=== PATIENT | female | born 1955 | race Caucasian/White ===

== ENCOUNTER 2020-04-20 09:53 | Outpatient (REF) | payer BC, SELFPAY ==
[2020-04-20 13:45] LABS: HCT 41.1 % (36.0-46.0); HGB 13.6 g/dL (11.2-15.7); MCH 29.8 pg (27.0-33.0); MCHC 33.1 % (32.0-36.0); MCV 89.9 fL (80-95); MPV 9.4 fL (8.0-11.0); Platelet Count 289 10^3/uL (130-400); RBC 4.57 10^6/uL (3.93-5.22); RDW 12.2 % (11.7-14.6); RDW-SD 40.4 fL; WBC 4.19 10^3/uL (4.4-10.8)
[2020-04-20 13:57] LABS: ALT 27 U/L (14-59); AST 24 U/L (15-37); Albumin 3.9 g/dL (3.4-5.0); Alkaline Phosphatase 49 U/L (46-116); Anion Gap 8.7 mmol/L (3-11); BUN 21 mg/dL (7-18); Bilirubin, Total 0.3 mg/dL (0.2-1.0); CO2 27.3 mmol/L (21.0-32.0); CREATININE 0.8 mg/dL (0.55-1.02); Calcium 9.2 mg/dL (8.5-10.1); Calculated LDL 101 mg/dL (<100); Chloride 104 mmol/L (98-107); Cholesterol 180 mg/dL (<200); Glucose 97 mg/dL (74-106); HDL Cholesterol 71 mg/dL (40-60); Potassium 5.1 mmol/L (3.5-5.1); Sodium 140 mmol/L (136-145); TSH 5.62 uIU/mL (0.36-3.74); Total Protein 7.2 g/dL (6.4-8.2); Triglyceride 40 mg/dL (<150)
[2020-04-20 14:17] LABS: FREE T4 1.05 ng/dL (0.76-1.46)
[2020-04-20 21:40] LABS: T3,Free 3.4 pg/mL (2.8-5.3)
== END 2020-04-20 09:54 | disposition home or self-care (01) ==
LOC: NCHCN 09:53
PROVIDERS: Visit Provider Family Medicine
DX: E03.9 Hypothyroidism, unspecified (principal); I10 Essential (primary) hypertension; I73.00 Raynaud's syndrome without gangrene
CPT/HCPCS: 80053; 80061; 85027; 84439; 84443; 84481

== ENCOUNTER 2021-01-06 09:37 | Outpatient (REF) | payer BC, SELFPAY ==
[2021-01-07 09:07] LABS: Anion Gap 5.8 mmol/L (3-11); BUN 14 mg/dL (7-18); CO2 30.2 mmol/L (21.0-32.0); CREATININE 0.9 mg/dL (0.55-1.02); Calcium 9.4 mg/dL (8.5-10.1); Chloride 103 mmol/L (98-107); Glucose 91 mg/dL (74-106); Potassium 5.7 mmol/L (3.5-5.1); Sodium 139 mmol/L (136-145); TSH (W/Ref FT4) 4.17 uIU/mL (0.36-3.74)
[2021-01-07 09:56] LABS: FREE T4 1.03 ng/dL (0.76-1.46)
== END 2021-01-06 09:38 | disposition home or self-care (01) ==
LOC: NCHCN 09:37
PROVIDERS: Visit Provider Family Medicine
DX: E03.9 Hypothyroidism, unspecified (principal)
CPT/HCPCS: 80048; 84439; 84443

== ENCOUNTER 2021-01-31 11:12 | Outpatient (REF) | payer BC, SELFPAY ==
[2021-01-31 15:52] LABS: Potassium 4.7 mmol/L (3.5-5.1)
== END 2021-01-31 11:13 | disposition home or self-care (01) ==
LOC: NCHCN 11:12
PROVIDERS: Visit Provider Family Medicine
DX: I10 Essential (primary) hypertension (principal)
CPT/HCPCS: 84132

== ENCOUNTER 2021-09-09 08:01 | Day surgery (SDC) | payer BC, SELFPAY ==
--- NOTE | 2021-09-08 18:40 | W.COLOREPORT ---
Colonoscopy Report Date of procedure: 09/09/21 Pre-op diagnosis general: +cologuard Surgeon: Maggie Asencio Anesthesia Type: General:No Airway Estimated blood loss (mL): 1 Pathology: other Complications: None Disposition: same day Prep: Miralax/Dulcolax Retraction Time: 11 Procedure Description: After informed consent was obtained the patient was taken to the procedure room and placed in a left decubitous position. Monitors were applied and a time out was done. The patients name, date of , procedure, allergies to medications and metal in their body was reviewed. The patient was then sedated. Once sedated and comfortable a rectal exam was done. External exam was normal. Internal exam revealed a normal sphincter tone and no palpable masses. The scope was then introduced and retrofelexed. No internal hemorrhoids were identified. The scope was then advanced to the cecum w/ouy difficulty. The TI and appendiceal orifice were identified. The prep was BB PS 2 for a total of 6 in all segments in all segments,. The scope was then slowly retracted over 11 minutes back into the rectum. she had no diverticula or AVMs. The mucosa is pink and healthy with a normal vascular pattern. She had a small 5 mm flat polyp at 20 cm. This is removed with a cold forceps. She had a 1 cm pedunculated polyp in high the rectum. This is removed with a cold snare. The polyp is retrieved and no bleeding is noted. The scope was removed and the patient was woken up and taken back to Same day surgery in stable condition. The patient tolerated the procedure well and there were no immediate complications. Follow up: The patient should follow up in proabably 3-5 years unless they develop changes in bowel habits or other new gastrointestinal complaints.
--- NOTE | 2021-09-08 18:41 | PDOC.DSDIS_ITS ---
Discharge Plan Disposition Patient Disposition: HOME Condition: Good Discharge Details Reason For Visit: colon scope Attending Provider: Maggie Asencio Primary Care Provider: Emi Bailon Home Meds and New Rx's Prescriptions: Continued hydrochlorothiazide 25 mg tablet 25 mg PO DAILY Discontinued bisacodyl [Dulcolax (bisacodyl)] 5 mg tablet,delayed release (DR/EC) 5 mg PO ONCE Qty: 4 0RF Rx Instructions: Take according to provider's instructions for colonoscopy prep. polyethylene glycol 3350 17 gram/dose powder 17 g PO ONCE Qty: 238 0RF Rx Instructions: To be taken as directed by prescriber's office for colonoscopy prep. Discharge Instructions Additional Instructions: DSU Colonoscopy Post- Op Instructions Instructions for Everyone who is given Anesthesia: For your safety, please do the following for the next twenty-four (24) hours: *Do Not operate a motor vehicle (car, truck, motorcycle, etc.) *Do Not drink alcoholic beverages or use any recreational drugs for the first 24 hours or while taking pain medications. The medications in your body may have a reaction that can be dangerous. *Do Not make any important decisions or sign any important papers. Findings: polyps x2 Follow up: My office will send a letter in 2 to 3 weeks time, detailing as to what type of polyp it is and when we want you to repeat your colonoscopy, probably in 5 years time. 1. No lifting over 20 pounds or strenuous activity for the first 24 hours after your procedure. After 24 hours there are no restrictions on your activity but y ou may feel fatigued for a few days. 2. After you arrive home you may have a light meal and return to your normal diet as you can tolerate it without feeling sick to your stomach. 3. You may have a bloated, gaseous feeling in your belly (abdomen) after a colonoscopy. Passing gas and belching will help. Walking or lying down on your left side with your knees flexed may relieve the discomfort. Call the office at [phone] (Office) or [phone] (Hospital) right away if you notice any of the following: a.Vomiting of blood or ?coffee ground stools?. b.Rectal bleeding 1Tbsp, blood clots or continuous bleeding. c.Severe belly (abdominal) pain. d.A hard distended belly (abdomen) and an inability to pass gas. 4. Please don?t expect to have a normal BM (bowel movement) for 2-3 days after your procedure. 5. If there are questions regarding the findings of your procedure, please contact your doctor 6. If you are unable to contact your doctor with a problem, contact the hospital at [phone]. 7. Continue all your regular medications unless directed otherwise. I understand the above instructions and have no questions. Signature of Patient or Adult Escort Name of Responsible Adult Escort Signature of Nurse Date/Time Activity:: See above Diet:: See above Discharge Orders Discharge Orders: Discharge Order (Routine); Ordered 09/08/21 Ordered By: Maggie Asencio
[2021-09-09 08:15] VITALS: BP 178/93; PULSE 70; RESP 18; TEMP 36.6; O2SAT 18
--- NOTE | 2021-09-09 09:03 | ANES.PREOP_ITS ---
General Info Date of Service Date Performed: 09/09/21 Height: 5 ft 3 in Weight: 54.9 kg Body Mass Index (BMI): 21.4 Surgical Procedure: Operation Date: 09/09/21 09:05 Proposed Procedure Side Surgeon anna Asencio, Meds Allergies and Home Medications Allergies Allergy/AdvReac Type Severity Reaction Status Date / Time ampicillin Allergy Severe Verified 09/09/21 08:24 Penicillins Allergy Severe Verified 09/09/21 08:24 Home Medication Medication Instructions Recorded hydrochlorothiazide 25 mg tablet 25 mg PO DAILY 08/15/21 bisacodyl 5 mg tablet,delayed 5 mg PO ONCE #4 tabs 08/22/21 release (Dulcolax (bisacodyl)) polyethylene glycol 3350 17 17 g PO ONCE #238 grams 08/22/21 gram/dose oral powder Current Visit Medications: Current Medications Generic Name Dose Route Start Last Admin Trade Name Freq PRN Reason Stop Dose Admin Hyoscyamine Sulfate 0.125 mg 09/08/21 18:40 Hyoscyamine 0.125 Mg Sl/Oral/Chew SL DIRECTED PRN Ringer's Solution 1,000 mls @ 80 mls/hr 09/09/21 06:00 IV 10/08/21 23:59 [facility] IV Miscellaneous Supplies 1 each 09/09/21 06:00 Iv Access IV 10/08/21 23:59 DIRECTED NEY Ondansetron HCl 4 mg 09/08/21 18:40 Ondansetron 4 Mg/2 Ml Vial IVP Q4H PRN PRN Nausea / Vomiting Sodium Chloride 0 ml 09/09/21 06:00 Normal Saline Flush 10 Ml Syr IV 10/08/21 23:59 PRN PRN Sodium Chloride 0 ml 09/09/21 06:00 Normal Saline 10 Ml Vial IJ 10/08/21 23:59 DIRECTED PRN Sterile Water 0 ml 09/09/21 06:00 Water,Injection,Sterile 10 Ml Vial IJ 10/08/21 23:59 DIRECTED PRN PFSH Active Problems Active Problems: Problem Status Onset Code Positive colorectal cancer screening using Cologuard test R19.5 Screening for colon cancer Z12.11 Medical History Medical History Anesthesia REQUESTING ALL FEMALE TEAM ONLY. Hypertension Raynaud phenomenon Rosacea Subclinical hypothyroidism Tear of knee, anterior cruciate ligament White coat syndrome without diagnosis of hypertension Surgical History Surgical History H/O: hysterectomy Tobacco Smoking/Tobacco Use Status: Never Alcohol Alcohol Intake: current Alcohol intake frequency: 0-2 drinks per day Alcohol type: wine Substance Use Substance use: Never Substance use type: does not use Vital Signs and Lab Results Vital Signs Most Recent Vital Signs in EMR: Most Recent Vital Signs Temp Pulse Resp BP Pulse Ox 36.6 C 70 18 178/93 H 18 L 09/09/21 08:15 09/09/21 08:15 09/09/21 08:15 09/09/21 08:15 09/09/21 08:15 Lab Results Blood Type / Crossmatch: No Data to Display Complete Blood Count: No Data to Display Complete Metabolic Panel: No Data to Display Liver Function Panel: No Data to Display Coagulation Panel: No Data to Display Cardiac Panel: 2 No Data to Display Arterial Blood Gas: No Data to Display Venous Blood Gas: No Data to Display Pancreas Panel: No Data to Display Thyroid Panel: No Data to Display Infectious Disease: No Data to Display Blood Cultures: No Data to Display Toxicology Panel: No Data to Display Anesthesia Assessment and Plan Anesthesia History Personal History: No History of Anesthesia Complications Family History: No Family History of Anesthesia Complications Exercise Tolerance Exercise Tolerance: Metabolic Equivalents>4 Pertinent Negatives Pertinent Negatives: No Symptoms of GERD, No Major Cardiovascular Symptoms or Complaints, No Major Pulmonary Symptoms or Complaints and No History of CVA/TIA Cardiac & Pulmonary Exam Cardiac Exam: Normal S1/S2 Heart Sounds Pulmonary Exam: Clear Bilateral Breath Sounds Implantable Cardiac Device Does patient have a Pacemaker or an ICD?: No Airway Exam Known Difficult Airway: No Mallampati Class: 3 Mouth Opening: Narrow (< 3cm) Thyromental Distance: Greater than 3 cm Neck Range of Motion: Full ROM Neck Circumference: Normal Teeth Condition: Normal Dentition ASA Classification ASA Score: ASA 2 Emergency Case?: No NPO Status NPO Status: NPO Clears >2 hours, Solids >8 hours Anesthesia Plan Resuscitation Status: Full Code Anesthesia Technique: General Anesthesia Airway Planned: Natural Airway Monitors Used: Standard Monitors Preoperative Comments:: Requests all female team.
[2021-09-09 09:06] VITALS: BMI 21.4
--- NOTE | 2021-09-09 10:10 | BOWEL_PTH ---
PATIENT: Usha Castro LOC: [facility] U#:[id number] AGE/SX: 66/F ROOM: RE09/09/[address]: Maggie Asencio : 1955 BED: DIS: 09/09/2021 SPEC #: [id number] RECD: 09/09/21 12:44 STATUS: LADI REQ #: [id number] NING: 09/09/21 10:[address]: Maggie Asencio DEPT: Surgical Specimen RECD BY: Vicky Mobley ENTERED: 09/09/21 12:45 SP TYPE: Bowel OTHR DR: Emi Bailon Tissues: 1 - BIOPSY BOWEL 2 - BIOPSY BOWEL Procedures: GROSS AND MICRO LEVEL 4 Comments: [id number]
[2021-09-09 10:35] VITALS: BP 101/63; PULSE 59; RESP 14; TEMP 36.2; O2SAT 100
--- NOTE | 2021-09-09 13:07 | W.ANESPOSTOP ---
Postoperative Evaluation Date, Time and Location Date Performed: 09/09/21 Time Performed: 10:46 Patient Location: Day Surgery Unit Vital Signs Most Recent Imported Vital Signs: Most Recent Vital Signs Temp Pulse Resp BP Pulse Ox 36.2 C L 59 L 14 101/63 100 09/09/21 10:35 09/09/21 10:35 09/09/21 10:35 09/09/21 10:35 09/09/21 10:35 Pain Score Most Recent Pain Score: Most Recent Pain Score Pain Level 0 09/09/21 10:35 Assessment Mental Status: Awake (Alert & Oriented to Patient Baseline) Airway and Respiratory Function: Patent airway with normal (patient baseline) respiratory exam Cardiovascular Function: Hemodynamically Stable Hydration Status: Adequately Hydrated Nausea & Vomiting: No Nausea or Vomiting Pain: Pt. Denies Any Pain Peripheral Nerve Block: Patient did not receive a nerve block
== END 2021-09-09 11:20 | disposition home or self-care (01) ==
PROVIDERS: PCP Family Medicine; Visit Provider Surgery
PROC: 0DJD8ZZ Inspection of Lower Intestinal Tract, Via Natural or Artificial Opening Endoscopic (ICD-10-PCS; CPT 45378; principal; 2021-09-09 09:00)
DX: R19.5 Other fecal abnormalities (principal); K62.1 Rectal polyp; K63.5 Polyp of colon; I10 Essential (primary) hypertension; I73.00 Raynaud's syndrome without gangrene
CPT/HCPCS: 45385; 45380; 88305

== ENCOUNTER 2023-01-11 05:08 | Outpatient (CLI) | payer MEDICARE, BC, SELFPAY ==
[2023-01-11 12:43] LABS: ALT 29 U/L (14-59); AST 29 U/L (15-37); Albumin 4.1 g/dL (3.4-5.0); Alkaline Phosphatase 61 U/L (46-116); Anion Gap 8.5 mmol/L (3-11); BUN 23 mg/dL (7-18); Bilirubin, Total 0.4 mg/dL (0.2-1.0); CO2 27.5 mmol/L (21.0-32.0); Calcium 9.7 mg/dL (8.5-10.1); Calculated LDL 125 mg/dL (<100); Chloride 100 mmol/L (98-107); Cholesterol 221 mg/dL (<200); Estimated GFR 62.52 (mL/min/1.73m2); Glucose 109 mg/dL (74-106); HDL Cholesterol 84 mg/dL (40-60); Sodium 136 mmol/L (136-145); TSH (W/Ref FT4) 3.48 uIU/mL (0.36-3.74); Triglyceride 64 mg/dL (<150)
== END 2023-01-11 05:09 | disposition home or self-care (01) ==
PROVIDERS: PCP Family Medicine; Visit Provider Family Medicine
DX: Z00.00 Encounter for general adult medical examination without abnormal findings (principal)
CPT/HCPCS: 36415; 80053; 80061; 84443

== ENCOUNTER 2024-03-05 08:48 | Outpatient (REF) | payer MEDICARE, BC, SELFPAY ==
--- OUTSIDE RECORDS SUMMARY | 2024-03-05 08:50 | XMS_ITS | Encounter Summary ---
Author Organization [facility] Address [address] [place] [address] Care Team Providers Care Manager Aviation Name Role Phone Emi Bailon MD Primary Care Provider [phone] Encounter Details Date Type Department Care Team (Late st Contact Info) Description 09/09/2021 Lab Requisition [facility] Pathology & Laboratory Medicine - [facility] [address] [place] [address] Maggie Asencio, DO [address] [place], [place] [id number] Encounter for other general examination Social History Tobacco Use Types Packs/Day Years Used Date Smoking Tobacco: Never Assessed Interpersonal Safety Answer Date Record ed Physically Hurt Never 04/20/2020 Verbally Threaten Not on file 04/20/2020 Comments Unknown Sex and Gender Information Value Date Recorded Sex Assigned at Not on file Legal Sex Female 16:42 EST Gender Identity Not on file Sexual Orientation Not on file documented as of this encounter Plan of Treatment Not on file documented as of this encounter Procedures Procedure Name Priority Date/Time Associated Diagnosis Comments SURGICAL PATHOLOGY Today 09/09/2021 10 :10 EDT Encounter for other general examination documented in this encounter Results * SURGICAL PATHOLOGY (09/09/2021 10:10 EDT) Note to Patient The following pathology results have been interpreted by your pathologist and may be available to you before your health provider has had the opportunity to review them. Please allow time for your provider to receive these results and explore management options, if applicable. 09/13/2021 8:46 EDT [facility] Final Diagnosis A. COLON, POLYP AT 20 CM, BIOPSY: - Hyperplastic polyp. B. RECTUM, POLYP, BIOPSY: - Tubular adenoma. 09/13/2021 8:46 EDT [facility] Attestation There was significant resident/fellow involvement in the diagnostic evaluation of this case. By the signature below, the attending physician certifies that they have personally conducted a gross and/or microscopic examination of the described specimens and rendered or confirmed the above diagnosis. 09/13/2021 8:46 [facility] at 0846 Clinical History + Cologuard 09/13/2021 8:46 [facility] Gross Description A. Received in formalin labelled with proper patient identification (initials M, R) and 1. Polyp @ 20 cm is a single potter-brown focally brown polypoid tissue (0.3 x 0.2 x 0.2 cm). The specimen is submitted intact in A1. B. Received in formalin labelled with proper patient identification (initials M, R) and 2. Polyp @ rectum is an aggregate of dark potter slightly lobular tissues (0.8 x 0.6 x 0.2 cm). Entirely submitted in B1. KIERRA LINDQUIST 09/10/2021 14:48 09/13/2021 8:46 EDT [facility] Resident/Travis w: Nasim Valentin MD 09/13/2021 8:46 T [facility] Performing Lab [facility] 09/13/2021 8:46 T [facility] Scanned Images 09/13/2021 8:46 T [facility] Tissue SPECIMEN FROM RECTUM / Unknown 09/09/2021 10:10 EDT 09/09/2021 17:15 EDT Tissue specimen (specimen) SPECIMEN FROM RECTUM / Unknown 09/09/2021 10:10 EDT 09/09/2021 17:15 EDT us Maggie Asencio DO PATHOLOGY ORDERABLES Final Re sult [facility] [address] [place] [address] documented in this encounter Visit Diagnoses Diagnosis Encounter for other general examination documented in this encounter Care Teams Manager Aviation Relationship Specialty Start Date End Date Emi Bailon MD [address] [place] [address] PCP - General Family Medicine - Primary Care 08/26/21 documented as of this encounter
--- OUTSIDE RECORDS SUMMARY | 2024-03-05 08:50 | XMS_ITS | Referral Summary ---
Author Organization [facility] Address [address] [place] [address] Care Team Providers Care Delivery Coordinator Name Role Phone Emi Bailon MD Primary Care Provider [phone] Social History Tobacco Use Types Packs/Day Years Used Date Smoking Tobacco: Never Assessed Interpersonal Safety Answer Date Record ed Physically Hurt Never 04/20/2020 Verbally Threaten Not on file 04/20/2020 Comments Unknown Sex and Gender Information Value Date Recorded Sex Assigned at Not on file Legal Sex Female 16:42 EST Gender Identity Not on file Sexual Orientation Not on file Plan of Treatment Not on file Insurance [facility] [place] [address] , [place] [address] , [place] [address] Care Teams Delivery Coordinator Relationship Specialty Start Date End Date Emi Bailon MD [address] [place] [address] PCP - General Family Medicine - Primary Care 08/26/21
--- OUTSIDE RECORDS SUMMARY | 2024-03-05 08:50 | XMS_ITS | Encounter Summary ---
Author Organization [facility] Address [address] [place] [address] Care Team Providers Care Digital Media Intern Name Role Phone Emi Bailon MD Primary Care Provider [phone] Encounter Details Date Type Department Care Team (Late st Contact Info) Description 04/20/2020 Lab Requisition [facility] [place] Pathology & Laboratory Medicine - [address] [address] Outr Resulting Lab, Provider Social History Tobacco Use Types Packs/Day Years [...] Procedure Name Priority Date/Time Associated Diagnosis Comments T3 FREE Routine 04/20/2020 8:15 EST documented in this encounter Results * T3 FREE (04/20/2020 8:15 EST) T3, Free 3.4 2.8 - 5.3 pg/mL 04/20/2020 21:35 EST [facility] Blood VENOUS BLOOD / Unknown 04/20/2020 8:15 EST 04/20/2020 21:03 EST us Provider Outr Resulting Lab CHEMISTRY & BLOOD GA S ORDERABLES Final Result [facility] [address] [place] [address] documented in this encounter Visit Diagnoses Not on filedocumented in this encounter Care Teams Digital Media Intern Relationship Specialty Start Date End Date Emi Bailon MD [address] [place] [address] PCP - General Family Medicine - Primary Care 08/26/21 documented as of this encounter
--- OUTSIDE RECORDS SUMMARY | 2024-03-05 08:50 | XMS_ITS | Clinical Summary ---
Author Organization [facility] Address [address] [place] [address] Care Team Providers Care Insurance Processing Clerk Name Role Phone Emi Bailon MD Primary Care Provider [phone] Social History Tobacco Use Types Packs/Day Years Used Date Smoking Tobacco: Never Assessed Interpersonal Safety Answer Date Record ed Physically Hurt Never 04/20/2020 Verbally Threaten Not on file 04/20/2020 Comments Unknown Sex and Gender Information Value Date Recorded Sex Assigned at Not on file Legal Sex Female 16:42 EST Gender Identity Not on file Sexual Orientation Not on file Plan of Treatment Health Maintenance Due Date Last Done Comments Hepatitis C Screen 1955 Fall Risk Screening 2022 COVID-19 Vaccine (2023-25 season) 2023 RSV Immunization ( o r 60+ Years) (1 - 1-dose 75+ series) 02/11/2032 Insurance [facility] [place] [address] [place] [address] [place] [address] , [place] [address] Care Teams Insurance Processing Clerk Relationship Specialty Start Date End Date Emi Bailon MD [address] [facility] [place] [address] PCP - General Family Medicine - Primary Care 08/26/21
[2024-03-05 15:15] LABS: ALT 22 U/L (14-59); AST 26 U/L (15-37); Albumin 3.9 g/dL (3.4-5.0); Alkaline Phosphatase 59 U/L (46-116); Anion Gap 8.3 mmol/L (3-11); BUN 21 mg/dL (7-18); Bilirubin, Total 0.57 mg/dL (0.2-1.0); CO2 29.7 mmol/L (21.0-32.0); CREATININE 0.9 mg/dL (0.55-1.02); Calcium 9.6 mg/dL (8.5-10.1); Calculated LDL 137 mg/dL (<100); Chloride 106 mmol/L (98-107); Cholesterol 227 mg/dL (<200); Estimated GFR 70.07 (mL/min/1.73m2); Glucose 116 mg/dL (74-106); HDL Cholesterol 79 mg/dL (40-60); Sodium 144 mmol/L (136-145); TSH (W/Ref FT4) 7.51 uIU/mL (0.36-3.74); Total Protein 7.1 g/dL (6.4-8.2); Triglyceride 56 mg/dL (<150)
[2024-03-05 16:01] LABS: FREE T4 0.87 ng/dL (0.76-1.46)
== END 2024-03-05 08:49 | disposition home or self-care (01) ==
LOC: NCHCN 08:48
PROVIDERS: PCP Family Medicine; Visit Provider Family Medicine
DX: E03.9 Hypothyroidism, unspecified (principal)
CPT/HCPCS: 80053; 80061; 84439; 84443

== ENCOUNTER 2024-07-11 00:21 | Outpatient (CLI) | payer MEDICARE, BC, SELFPAY ==
--- NOTE | 2024-07-11 | DI.DEXA_ITS ---
Exam(s) XR DEXA BONE DENSITY W/WO ROBB EXAM: XR DEXA BONE DENSITY W/WO ROBB CLINICAL HISTORY: ASYMPTOMATIC MENOPAUSAL STATE, Z78.0 TECHNIQUE: COMPARISON: No exams were available for comparison FINDINGS: Lateral Spine Image: Unremarkable. No compression deformities identified. Left hip: Total T-Score: 0.6 Total Z-Score: 2.0 T- and Z-scores: Within normal limits. Lumbar Spine: Total T-Score: 0.0 Total Z-Score: 1.9 T- and Z-scores: Within normal limits. IMPRESSION: No evidence of osteoporosis.
== END 2024-07-11 00:41 ==
LOC: DI 00:21
PROVIDERS: PCP Family Medicine; Visit Provider Family Medicine
DX: Z78.0 Asymptomatic menopausal state (principal); Z13.820 Encounter for screening for osteoporosis
CPT/HCPCS: 77080

== ENCOUNTER → 2024-10-15 13:31 | Outpatient (BNVA) | payer MEDICARE, BC, SELFPAY | PROVIDERS: PCP Family Medicine; Referring Provider Family Medicine; Visit Provider Physical Therapy Assistant | DX: L72.3 Sebaceous cyst (principal) | CPT/HCPCS: 99202 ==